=== PATIENT | female | born 1960 | race Native Hawaiian/Other Pacific Islander ===

== ENCOUNTER 2020-08-15 02:39 | Emergency (ER) | payer OTHER ==
[2020-08-28 20:25] LABS: PLATELET COUNT 330 K/uL (152-353)
[2020-08-28 20:27] LABS: POTASSIUM 3.4 mmol/L (3.6-5.2); SODIUM 140 mmol/L (136-145)
[2020-08-28 20:30] LABS: PARTIAL THROMBOPLASTIN TIME 20.7 SECONDS (24.5-33.6)
== END 2020-08-15 08:50 | disposition short-term general hospital (02) ==
LOC: ED 02:39
PROVIDERS: Emergency Medicine
DX: T79.6XXA Traumatic ischemia of muscle, initial encounter (principal); S22.32XA Fracture of one rib, left side, initial encounter for closed fracture; F10.129 Alcohol abuse with intoxication, unspecified; Y90.6 Blood alcohol level of 120-199 mg/100 ml; S81.812A Laceration without foreign body, left lower leg, initial encounter; S81.811A Laceration without foreign body, right lower leg, initial encounter; S81.011A Laceration without foreign body, right knee, initial encounter; R79.89 Other specified abnormal findings of blood chemistry; I44.4 Left anterior fascicular block; Z11.52 Encounter for screening for COVID-19; V59.3XXA Occupant (driver) (passenger) of pick-up truck or van injured in unspecified nontraffic accident, initial encounter; Y92.89 Other specified places as the place of occurrence of the external cause
CPT/HCPCS: 36415; 80053; 80320; 82550; 82553; 84484; 85027; 85610; 85730; 87635; 90471; 90715; 93005; 96360; 96375; 99284; J1885; J2405; U0003